=== PATIENT | male | born 1960 | race Caucasian/White ===

== ENCOUNTER 2017-12-21 08:49 | Day surgery (SDC) | payer MEDICARE ==
[2017-12-21] MEDS ORDERED: Lactated Ringers 1,000 ML IV ONE (08:50)
[2017-12-21 09:42] LABS: Hematocrit 43.8 % (42-50); Hemoglobin 15.1 gm/dl (12.5-18.0); Mean Cell Volume 91.6 fl (78-100); Mean Corpuscular Hemoglobin 31.6 pg (26-32); Mean Corpuscular Hgb Concent. 34.5 g/dl (32-36); Mean Platelet Volume 10.7 fl (6-9.5); Platelet Count 198 K/mm3 (150-450); Red Blood Count 4.78 M/mm3 (4.1-5.6); Red Cell Distribution Width 13.4 % (11.5-14.0); White Blood Count 10.2 K/mm3 (4.0-10.5)
[2017-12-21 10:01] LABS: INR 1.07 (0.8-3.0)
[2017-12-21 10:03] LABS: PTT 29.1 SECONDS (24.1-36.1)
== END 2017-12-21 11:30 | disposition home or self-care (01) ==
LOC: SDC-PAIN 08:49
PROVIDERS: ATTEND Internal Medicine
DX: Z53.21 Procedure and treatment not carried out due to patient leaving prior to being seen by health care provider (principal)
CPT/HCPCS: 36415; 85027; 85610; 85730